=== PATIENT | female | born 1965 | race Caucasian/White ===

== ENCOUNTER 2016-06-09 01:51 | Emergency (ER) | payer OTHER ==
[~2016-06-09] VITALS: Ht 172.7 cm; Wt 59.0 kg
[~2016-06-09 01:51] MED LIST: AZITHROMYCIN250 M1 PO; CALCIUM600 M2 PO; HYDROCHLOROTHIA25 M1 PO; MULTIVITAMINS1 EAC9 PO; NAPROSYN500 M1 PO; PANTOPRAZOLE SO40 M1 PO; PROTONIX40 M3 PO; TESSALON PERLE100 M1 PO; TRAMADOL HCL50 M1 PO
--- NOTE | 2016-06-09 05:06 | ED PSYCHIATRIC COMPLAINT ---
History of Present Illness General Chief Complaint: Psychiatric Related Complaint Stated Complaint: BIBA SI Source: patient, old records, EMS Exam Limitations: no limitations Allergies Coded Allergies: ibuprofen (From MOTRIN) (Intermediate, NAUSEA 08/22/15) aspirin (GI UPSET, NAUSEA 08/22/15) Reconcile Medications Azithromycin 250 MG TABLET 1 DP PO AD sinusitis 2 the first day followed by 1 for days 2-5 Benzonatate (Tessalon Perle) 100 MG CAPSULE 1 CAP PO TID PRN cough Calcium Carbonate (Calcium) (Unknown Strength) TABLET (Unknown Dose) PO DAILY SUPPLEMENT (Reported) Hydrochlorothiazide 25 MG TABLET 1 TAB PO DAILY BP (Reported) Hydrochlorothiazide 25 MG TABLET 1 TAB PO DAILY hypertension Multiple Vitamin (Multivitamins) 1 EACH TABLET 1 TAB PO DAILY SUPPLEMENT ( Reported) Naproxen (Naprosyn) 500 MG TABLET 1 TAB PO BID PRN pain Pantoprazole Sodium (Unknown Strength) TABLET.DR (Unknown Dose) PO DAILY GI ( Reported) Pantoprazole Sodium (Protonix) 40 MG TABLET.DR 1 TAB PO DAILY gerd Tramadol HCl 50 MG TABLET 1 TAB PO Q6P PRN pain Triage Note: PT BIBA FROM HOME FOR POSSIBLE +SI. PER EMS PT INGESTED 30+ HYDRALAZINE PILLS. PT COMPLAINS OF FEELING SLEEPY. PER EMS POSSIBLE DOMESTIC INCIDENT MAY HAVE TAKEN PLACE DUE TO BROKEN PLATES ALL OVER HOME. UPON ARRIVAL PT ALERT BUT DROWSY. Triage Nurses Notes Reviewed? yes HPI: Patient presents for evaluation of a suicide attempt. Patient states she "took a lot of medicine" because she "wanted to sleep". She is not sure exactly what she took, it may have been hydrochlorothiazide or hydroxyzine. She denies any coingestion of Tylenol ibuprofen aspirin or any associated drug use. He does admit to drinking alcohol tonight because she has been under a lot of stress related to her boyfriend. (ANASTACIA CINTRON,BRIT Hargrove) Vital Signs & Intake/Output Vital Signs & Intake/Output Vital Signs Date Time Temp Pulse Resp B/P Pulse O2 O2 Flow FiO2 Ox Delivery Rate 06/10 1103 97.3 90 18 115/73 96 06/09 2238 98.2 74 16 134/80 94 Room Air 06/09 2131 98.2 84 16 130/76 95 Room Air 06/09 1950 98.2 84 16 150/76 98 Room Air 06/09 1740 98.2 80 16 125/76 95 Room Air 06/09 1430 98.4 80 16 128/76 94 Room Air ED Intake and Output 06/10 0000 06/09 1200 Intake Total 0 Output Total Balance 0 Intake, Oral 0 Patient 130 lb 130 lb Weight Past History Travel History Traveled to [place] past 21 day No Medical History Any Pertinent Medical History? see below for history Neurological: NONE EENT: NONE Cardiovascular: hypertension Respiratory: NONE Gastrointestinal: GERD Hepatic: NONE Renal: NONE Musculoskeletal: chronic back pain, chronic neck pain Psychiatric: NONE Endocrine: NONE Blood Disorders: NONE Cancer(s): NONE Surgical History Surgical History: non-contributory Psychosocial History What is your primary language Portuguese Family History Hx Contributory? No (ANASTACIA CINTRON,BRIT Hargrove) Review of Systems Review of Systems Constitutional: Reports: no symptoms. EENTM: Reports: no symptoms. Respiratory: Reports: no symptoms. Cardiovascular: Reports: no symptoms. GI: Reports: no symptoms. Genitourinary: Reports: no symptoms. Musculoskeletal: Reports: no symptoms. Skin: Reports: no symptoms. Neurological/Psychological: Reports: see HPI. Hematologic/Endocrine: Reports: no symptoms. Immunologic/Allergic: Reports: no symptoms. All Other Systems: Reviewed and Negative (ANASTACIA CINTRON,BRIT Hargrove) Physical Exam Physical Exam General Appearance: see below Neurological/Psychiatric: see below Comments: General: cooperative, somnolent but easily arousable. Head: Normocephalic, atraumatic Eyes: Normal inspection, no nystagmus, EOMI Ears: Normal inspection Nose: Normal inspection Throat: Moist mucosa Neck: Supple, no goiter Heart: Regular rate and rhythm, no murmurs rubs or gallops Lungs: Clear to auscultation bilaterally with good air entry Abdomen: Soft nontender nondistended, normal bowel sounds Chest: Nontender Extremities: Normal range of motion grossly, no tremors present, no cyanosis clubbing or edema of the upper extremities Neurologic: cranial nerves II through XII grossly intact, speech clear, gait normal Psychiatric: No apparent delusions or hallucinations, no pressured speech or thought blocking SAD PERSONS Done? 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 06/10/2016 7:17:44 AM pt signed out to me by dr vegas. 06/10/2016 1:40:49 PM PER CRISIS, TRANSFER TO [facility] [place] IN [place] TO DR FALK. (ANASTACIA CINTRON,BRIT Hargrove) Plan of Care: Orders Procedure Date/time Status Regular Diet 06/10 B Active Continuous Observation Monitor 06/10 0539 Active Hand-Off Endorsed To: HAVEN VEGAS MD Endorsed Time: 1900 Pending: other (bed search) (YNES ORTIZ MD) Hand-Off Endorsed To: BRIT GALAVIZ MD Endorsed Time: 07 Pending: other (HAVEN VEGAS MD) Departure Departure Disposition: OTHER PYSCH Condition: Stable Referrals: ALEISHA MCGRAW MD (PCP/Family) Departure Forms: Customer Survey General Discharge Information (BRIT GALAVIZ MD) Departure Clinical Impression Primary Impression: Major depression Qualifiers: Major depression recurrence: recurrent Active/Remission status: currently active Major depression episode severity: unspecified Qualified Code: F33.9 - Major depressive disorder, recurrent, unspecified (YNES ORTIZ MD) ALEISHA MCGRAW MD (PCP/Family) Departure Forms: Customer Survey General Discharge Information (BRIT GALAVIZ MD) Departure Disposition: STILL A PATIENT Clinical Impression Primary Impression: Major depression Qualifiers: Major depression recurrence: recurrent Active/Remission status: currently active Major depression episode severity: unspecified Qualified Code: F33.9 - Major depressive disorder, recurrent, unspecified (YNES ORTIZ MD)
[2016-06-09 05:38] LABS: ABSOLUTE BASOPHIL COUNT 0.1 /CUMM (0.0-0.2); ABSOLUTE EOSINOPHIL COUNT 0.1 /CUMM (0.0-0.7); ABSOLUTE LYMPH COUNT 2.3 /CUMM (1.2-3.4); ABSOLUTE MONOCYTE COUNT 0.3 /CUMM (0.10-0.60); EOSINOPHIL % 2.5 % (0-5); GRANULOCYTE % 51.6 % (42.2-75.2); HEMATOCRIT 40.7 % (37-47); MEAN CORPUSCULAR HGB 31.1 PG (27.0-31.0); MEAN CORPUSCULAR HGB CONC 34.1 G/DL (33.0-37.0); MEAN CORPUSCULAR VOLUME 91.2 FL (81.0-99.0); MEAN PLATELET VOLUME 7.4 FL (7.4-10.4); PLATELET COUNT 397 /CUMM (130-400); RBC DISTRIBUTION WIDTH 13.4 % (11.5-14.5); RED BLOOD CELL CT 4.47 /CUMM (4.20-5.40); WHITE BLOOD CELL COUNT 5.8 /CUMM (4.8-10.8)
--- NOTE | 2016-06-09 12:42 | ED PSY CRISIS COLLATERAL NOTE ---
Collateral Note Collateral Note Family/Inform/Eryn Contacts: This clinician called Kevin Rich boyfriend of 2 years. Kevin reports the Pt has been more depressed after the holidays, spending time in her room and isolating. He reports the Pt is receiving treated at [facility] in [place]. Kevin reports the Pt attempted overdose by taking pills, drinking Alcohol and called 911. He reports being concerned about her depression. (TRENT BOOTH,MARYLOU) Collateral Note Family/Inform/Eryn Contacts: Pt continues to endorse si, and feels depressed. Pt understnads her dispostion is inpatient hospitialization. Pt laying down calm, cooperative and asked for gingerale. Pt will be updated if their is a bed found. (ALANNA AG,KIP)
--- NOTE | 2016-06-09 13:36 | ED PSYCH CRISIS CONSULTATION ---
See Addendum Crisis Consult Basic Assessment Date of Consult: 06/09/16 Responsible Person/Accompanied By: Self Insurance Authorization: Insurance #1: Insurance name: LUCRECIA WOLFE Phone number: Policy number: [id number] Group number: Authorization number: ED Provider: Patient's ED Provider: BRIT GALAVIZ MD Primary Care Physician: Patient's PCP: ALEISHA MCGRAW MD PCP's Current Psychiatrist: Dr. Rodney Nick Chief Complaint: Psychiatric Related Complaint Patient's Quote: " I feel really depressed" Present Illness: Pt is a 50 year old single female BIBA for evaluation of a suicide attempt. Pt states she "took a lot of medicine" because she "wanted to sleep" and not sure exactly what she took, it may have been hydrochlorothiazide or hydroxyzine Anxiety medication. Pt reports drinking Alcohol Rum 1/5 with the pills to overdose and then called 911. She reports being depressed, sad and hopeless. Pt reports being in a relationship with a boyfriend and arguing alot. She reports a history of (1) previous suicide attempt and a history of Mental Health treatment in the [place] area. Pt reports most recently being treated in [place] at Care treated for depression with Cymbalta. She reports a history of Alcohol abuse and denies the use of any other substance or Substance Abuse treatment. Pt reports taking Oxycodine for pain and reports having Fibromyalgia, recent foot operated in February, and neck pain. Patient's Address: [address] [place] [address] Other Who Do You Live With? Friend (Boyfriend Kevin Mina) Family/Informants Interviewed: Kevin Mina [phone] boyfriend Allergies - Coded Allergies: ibuprofen (From MOTRIN) (Intermediate, NAUSEA 08/22/15) aspirin (GI UPSET, NAUSEA 08/22/15) Current Medications - Scheduled Medications Azithromycin 250 MG TABLET 1 DP PO AD sinusitis #6 TAB Prescribed by JOYCE GARCIA on 02/25/16 Calcium Carbonate (Calcium) (Unknown Strength) TABLET (Unknown Dose) PO DAILY SUPPLEMENT (Reported) Entered as Reported by JARET CARRILLO on 04/05/16 1920 Hydrochlorothiazide 25 MG TABLET 1 TAB PO DAILY BP (Reported) Entered as Reported by JARET CARRILLO on 08/22/15 191 Hydrochlorothiazide 25 MG TABLET 1 TAB PO DAILY hypertension #30 TAB Prescribed by MARCELLA LARA on 08/22/15 Multiple Vitamin (Multivitamins) 1 EACH TABLET 1 TAB PO DAILY SUPPLEMENT ( Reported) Entered as Reported by JARET CARRILLO on 08/22/151920 Pantoprazole Sodium (Unknown Strength) TABLET.DR (Unknown Dose) PO DAILY GI ( Reported) Entered as Reported by JARET CARRILLO on 08/22/151919 Pantoprazole Sodium (Protonix) 40 MG TABLET.DR 1 TAB PO DAILY gerd #30 TAB Prescribed by MARCELLA LARA on 08/22/15 Scheduled PRN Medications Benzonatate (Tessalon Perle) 100 MG CAPSULE 1 CAP PO TID PRN cough #12 CAP Prescribed by JOYCE GARCIA on 02/25/16 Naproxen (Naprosyn) 500 MG TABLET 1 TAB PO BID PRN pain #20 TAB Prescribed by JOYCE GARCIA on 02/25/16 Tramadol HCl 50 MG TABLET 1 TAB PO Q6P PRN pain #30 TAB Prescribed by MARCELLA LARA on 08/22/15 Laboratory Results: Laboratory Tests 06/09/16 0556: Urine Opiates Screen 105.00, Methadone Screen 64, Barbiturate Screen < 60, Ur Phencyclidine Scrn < 6.00, Amphetamines Screen < 100, U Benzodiazepines Scrn < 85, Urine Cocaine Screen < 50, Urine Cannabis Screen < 5.00 06/09/16 0528: Anion Gap 12, Estimated GFR > 60, BUN/Creatinine Ratio 17.1, Glucose 78, Calcium 9.3, Total Bilirubin 0.4, AST 18, ALT 26, Alkaline Phosphatase 67, Total Protein 7.3, Albumin 4.3, Globulin 3.0, Albumin/Globulin Ratio 1.4, CBC w Diff NO MAN DIFF REQ, RBC 4.47, MCV 91.2, MCH 31.1 H, RDW 13.4, MPV 7.4, Gran % 51.6, Lymphocytes % 40.3, Monocytes % 4.6, Eosinophils % 2.5, Basophils % 1.0, Absolute Granulocytes 3.0, Absolute Lymphocytes 2.3, Absolute Monocytes 0.3, Absolute Eosinophils 0.1, Absolute Basophils 0.1, PUBS MCHC 34.1, Salicylates < 1.0, Acetaminophen < 10.0 L, Serum Alcohol 33.0 (TRENT LEOBARDO,MARYLOU) Past History Past Medical History Neurological: NONE EENT: NONE Cardiovascular: hypertension Respiratory: NONE Gastrointestinal: GERD Hepatic: NONE Renal: NONE Musculoskeletal: chronic back pain, chronic neck pain Psychiatric: depression Endocrine: NONE Blood Disorders: NONE Cancer(s): NONE 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 Psychiatric Treatment History Psych Treatment Psychiatric Treatment Yes Inpatient Treatment Yes Outpatient Treatment Yes Location of Treatment Care in [place] Reason for Treatment Depression Dates of Treatment currently being treated at [facility] for depression Response to Treatment currently being treated poor , currently despressed. Diagnosis by History: Marjor Depression, Unspecified F32.9 Substance Use/Abuse History Drug Use/Abuse Substances Used/Abused Yes Substance Used/Abused Alcohol First Use 14 YEARS OLD Last Used 06/09/2016 How much used/taken 1/5 of Rum How often occassionally For how long occassionally Route of use oral Substance Abuse Treatment Substance Abuse Treatment Past Substance Abuse [place] No Inpatient Treatment No Outpatient Treatment No Comments: Pt presents to the ER after attesmting suicide by overdose with pills and Alcohol. Hx of depression currently treated at [facility] with Dimitrimbalta. (TRENT MARYLOU BOOTH) Current Mental Status Mental Status Orientation: Person, Place, Situation Affect: Depressed, Flat, Hopeless, Sad Speech: WNL Neuro-vegetative: Appetite Decreased, Energy Decreased Appearance Appearance- Dress/Hygiene: Dressed in hospital clothing. Behaviors Thought Process: WNL Thought Content: WNL Memory: WNL Insight: Poor SI/HI Risk Assessment Past Suicidal Ideation/Attempts Yes Current Suicidal Ideation/Att No Past Homicidal Ideation/Att: No Current Homicidal Ideation/Attempts No Degree of Intent: Made Preparations, Plan Danger To: Self Gravely Disabled: Lack of Insight, Poor Impulse Control, Poor Judgment Risk Factors: history of suicide atmpts, SA/MH hospitalized, poor impulse control Lethality Ratin PTSD Checklist PTSD Score: PTSD Score: Response Value Disturbing memories,thoughts,images of stressful experience? Not at all 1 Disturbing dreams of stressful experience from past? Not at all 1 Suddenly acting/feeling as if reliving stressful experience? Not at all 1 Total 3 PTSD Done? patient declined ED Management Sitter: Yes Restraints: No (TRENT LEOBARDOMARYLOU) DSM5/PS Stressors/Medical Prob Diagnosis' (DSM 5, Stressors, Medical): Depression Unspeciefied F32.9 Current GAF: 25 Comments: Pt presents to the ER after attesmting suicide by overdose with pills and Alcohol. Hx of depression currently treated at [facility] with Cymbalta. Pt presents depressed, sad, and hopeless. Consulted with Dr. Rodney Nick. (MARYLOU NELSON) Departure Disposition Psych Medical Clearance Date: 06/09/16 Medically Cleared at: 1140 Time Started: 1140 Time Ended: 1225 Psychiatrist Consulted: Dr. Rodney Nick Date Disposition Established: 06/09/16 Time Disposition Established: 1225 Plan for Disposition - Modality: Bed Search Rationale for Disposition: Pt presents to the ER after attesmting suicide by overdose with pills and Alcohol. Hx of depression currently treated at [facility] with Cymbalta. Pt presents depressed, sad, and hopeless. Consulted with Dr. Rodney Nick. Type of IP Admission: Voluntary Referrals ALEISHA MCGRAW MD (PCP/Family) (TRENT MARYLOU BOOTH) Addendum Addendum Pt continues to endorse si, and feels depressed. Pt understands her dispostion is inpatient hospitialization. Pt laying down calm, cooperative and asked for gingerale. Pt will be updated if their is a bed found. (ALANNA AG,KIP)
[2016-06-10 14:04] VITALS: BP 118/80
== END 2016-06-10 14:39 | disposition other institution (70) ==
LOC: ERH 01:51
PROVIDERS: Emergency Medicine
DX: F32.9 Major depressive disorder, single episode, unspecified (principal); T50.902A Poisoning by unspecified drugs, medicaments and biological substances, intentional self-harm, initial encounter; F10.10 Alcohol abuse, uncomplicated
CPT/HCPCS: 80307; 93005; 93010; G0463; G0480; J3101

== ENCOUNTER 2016-10-02 20:52 | Emergency (ER) | payer OTHER ==
[~2016-10-02] VITALS: Ht 162.6 cm; Wt 54.4 kg
--- NOTE | 2016-10-02 22:10 | ED DYSPNEA/ASTHMA COMPLAINT ---
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 Vital Signs & Intake/Output Vital Signs & Intake/Output Vital Signs Date Time Temp Pulse Resp B/P B/P Pulse O2 O2 Flow FiO2 Mean Ox Delivery Rate 10/02 2058 97.5 98 20 111/79 98 Room Air Allergies Coded Allergies: ibuprofen (From MOTRIN) (Intermediate, NAUSEA 08/22/15) aspirin (GI UPSET, NAUSEA 08/22/15) Reconcile Medications Azithromycin 250 MG TABLET 1 DP PO AD sinusitis 2 the first day followed by 1 for days 2-5 Benzonatate (Tessalon Perle) 100 MG CAPSULE 1 CAP PO TID PRN cough Calcium Carbonate (Calcium) (Unknown Strength) TABLET (Unknown Dose) PO DAILY SUPPLEMENT (Reported) Hydrochlorothiazide 25 MG TABLET 1 TAB PO DAILY BP (Reported) Hydrochlorothiazide 25 MG TABLET 1 TAB PO DAILY hypertension Multiple Vitamin (Multivitamins) 1 EACH TABLET 1 TAB PO DAILY SUPPLEMENT ( Reported) Naproxen (Naprosyn) 500 MG TABLET 1 TAB PO BID PRN pain Pantoprazole Sodium (Unknown Strength) TABLET.DR (Unknown Dose) PO DAILY GI ( Reported) Pantoprazole Sodium (Protonix) 40 MG TABLET.DR 1 TAB PO DAILY gerd Tramadol HCl 50 MG TABLET 1 TAB PO Q6P PRN pain Triage Note: PT TO TRIAGE WITH C/O DIFFICULTY BREATHING SINCE FRIDAY, HAS BEEN USING VENTOLIN WITH SLIGHT RELIEF. O2SAT 98% ON RA, PT SPEAK FALL SENTENSES ALSO PT REPORTS SLIP AND FALL IN BATHROOM 1HR FORENSIC PSYCHIATRIST, HIT BACK OF HEAD, -LOC, -LAC. PT C/O HEADACHE AND NECK PAIN, +TENDERNESS TO C-SPINE, PT REFUSED COLLAR. VSS. 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
--- NOTE | 2016-10-02 22:15 | ED DYSPNEA/ASTHMA COMPLAINT ---
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 Source: patient, old records Exam Limitations: no limitations Vital Signs & Intake/Output Vital Signs & Intake/Output Vital Signs Date Time Temp Pulse Resp B/P B/P Pulse O2 O2 Flow FiO2 Mean Ox Delivery Rate 10/02 2224 98 10/02 2058 97.5 98 20 111/79 98 Room Air Allergies Coded Allergies: ibuprofen (From MOTRIN) (Intermediate, NAUSEA 08/22/15) aspirin (GI UPSET, NAUSEA 08/22/15) Reconcile Medications Azithromycin 250 MG TABLET 1 DP PO AD sinusitis 2 the first day followed by 1 for days 2-5 Benzonatate (Tessalon Perle) 100 MG CAPSULE 1 CAP PO TID PRN cough Calcium Carbonate (Calcium) (Unknown Strength) TABLET (Unknown Dose) PO DAILY SUPPLEMENT (Reported) Hydrochlorothiazide 25 MG TABLET 1 TAB PO DAILY BP (Reported) Hydrochlorothiazide 25 MG TABLET 1 TAB PO DAILY hypertension Multiple Vitamin (Multivitamins) 1 EACH TABLET 1 TAB PO DAILY SUPPLEMENT ( Reported) Naproxen (Naprosyn) 500 MG TABLET 1 TAB PO BID PRN pain Pantoprazole Sodium (Unknown Strength) TABLET.DR (Unknown Dose) PO DAILY GI ( Reported) Pantoprazole Sodium (Protonix) 40 MG TABLET.DR 1 TAB PO DAILY gerd Tramadol HCl 50 MG TABLET 1 TAB PO Q6P PRN pain Triage Note: PT TO TRIAGE WITH C/O DIFFICULTY BREATHING SINCE FRIDAY, HAS BEEN USING VENTOLIN WITH SLIGHT RELIEF. 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 PT C/O HEADACHE AND NECK PAIN, +TENDERNESS TO C-SPINE, PT REFUSED COLLAR. VSS. Triage Nurses Notes Reviewed? yes HPI: Patient presents with 2 complaints. First complaint is dyspnea and worsening for the past 2 days. Patient denies any chest pain or chest tightness. She has a productive cough. Patient suffers from asthma and just feels that his irritability that attack. There is no orthopnea. There slight dyspnea on exertion. There are no fevers or chills. Patient has been using her inhaler without relief. Patient's other complaint is neck pain. Patient states that she has chronic spinal stenosis and is due to have surgery. Patient was in the shower getting ready to come here when she felt a little lightheaded and then slipped on the water and fell backwards and hit her head on the shower wall. There was no loss of consciousness. Patient states that she hyperflexed her neck and now is having acute exacerbation of chronic pain in her neck. The pain is in the lower aspect of her neck. There is no radiation. The pain increases with movement. The pain is sharp but aching in nature. She rates the pain as 10 out of 10. There is no Numbness or weakness. Past History Travel History Traveled to [place] past 21 day No Medical History Any Pertinent Medical History? 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 No Review of Systems Review of Systems Constitutional: Reports: no symptoms. EENTM: Reports: no symptoms. Respiratory: Reports: see HPI, cough, short of breath, sputum production, wheezing. Cardiovascular: Reports: no symptoms. GI: Reports: no symptoms. Genitourinary: Reports: no symptoms. Musculoskeletal: Reports: see HPI, neck pain. Skin: Reports: no symptoms. Neurological/Psychological: Reports: no symptoms. Hematologic/Endocrine: Reports: no symptoms. Immunologic/Allergic: Reports: no symptoms. All Other Systems: Reviewed and Negative Physical Exam Physical Exam General Appearance: well developed/nourished, alert, awake, anxious, moderate distress Head: atraumatic, normal appearance Eyes: Bilateral: PERRL, EOMI. Ears, Nose, Throat: normal pharynx, normal ENT inspection, hearing grossly normal Neck: normal inspection, supple, tender lateral, tender midline Respiratory: decreased breath sounds, wheezing Cardiovascular: regular rate/rhythm, normal peripheral pulses Gastrointestinal: normal bowel sounds, soft, non-tender, no organomegaly Extremities: normal inspection, normal capillary refill, normal range of motion, no edema Neurologic/Psych: no motor/sensory deficits, awake, alert, oriented x 3, normal gait, normal mood/affect Skin: intact, normal color, warm/dry Lymphatic: no anterior cervical imelda Core Measures ACS in differential dx? No Severe Sepsis Present: No Septic Shock Present: No Progress Differential Diagnosis: asthma, bronchitis, COPD, pneumonia, pneumothorax Plan of Care: Orders Procedure Date/time Status TROPONIN LEVEL 10/02 2213 Complete COMPREHENSIVE METABOLIC PANEL 10/02 2213 Complete CBC WITHOUT DIFFERENTIAL 10/02 2213 Complete EKG 10/02 2213 Active Laboratory Tests 10/02/162230: Anion Gap 11, Estimated GFR > 60, BUN/Creatinine Ratio 16.7, Glucose 95, Calcium 9.7, Total Bilirubin 0.5, AST 15, ALT 35, Alkaline Phosphatase 84, Troponin I < 0.01, Total Protein 7.2, Albumin 4.5, Globulin 2.7, Albumin/Globulin Ratio 1.7, CBC w Diff NO MAN DIFF REQ, RBC 4.29, MCV 90.1, MCH 31.5 H, RDW 13.1, MPV 7.1 L, Gran % 48.3, Lymphocytes % 45.1, Monocytes % 4.7, Eosinophils % 1.6, Basophils % 0.3, Absolute Granulocytes 4.6, Absolute Lymphocytes 4.3 H, Absolute Monocytes 0.4, Absolute Eosinophils 0.2, Absolute Basophils 0, PUBS MCHC 35.0 Diagnostic Imaging: Viewed by Me: Radiology Read, CT Scan. Discussed w/RAD: Radiology Read, CT Scan. Radiology Impression: PATIENT: TENISHA TORRES PRESENT AGE: 50 PATIENT ACCOUNT NO: [id number] : 63 LOCATION: [facility] ORDERING PHYSICIAN: SAL RIVERA MD SERVICE DATE: 10/02/16 EXAM TYPE: CAT - CT CERV SPINE WO IV CONTRAST; CT HEAD WO IV CONTRAST EXAMINATIONS: CT HEAD WITHOUT CONTRAST AND CT CERVICAL SPINE WITHOUT CONTRAST CLINICAL INFORMATION: Pain following injury. Trauma. COMPARISON: None. TECHNIQUE: Contiguous helical images of the brain were obtained without IV contrast. Contiguous helical images of the cervical spine were obtained without IV contrast. Multiplanar reconstructions were performed. DLP: 861 mGy-cm. FINDINGS: There are no pathologic extra-axial fluid collections. The lateral, third, fourth ventricles are nondilated and concordant with the appearance of the sulci. There is no evidence for acute intraparenchymal hemorrhage or infarct. There is neither mass nor mass effect. There is no shift of midline structures. The paranasal sinuses and mastoid air cells are clear. There are no osseous lesions. The cervical vertebra are in normal alignment. There is disc height loss within the mid to lower cervical spine. There is mild anterior osteophyte formation. Disc heights and vertebral heights are otherwise well-preserved. There are no fractures. There is no prevertebral soft tissue swelling. There is no cervical lymphadenopathy. The visualized lung apices are clear. IMPRESSION: No evidence for acute intracranial injury. No evidence for acute injury to the cervical spine. Mild degenerative change with in the mid to lower cervical spine. DICTATED BY: JOHANA WILLIAMSON MD DATE/TIME DICTATED:10/02/162309 SIGN PAINTER HELPER:LUCIA DATE/TIME TRANSCRIBED:10/02/162309 CONFIDENTIAL, DO NOT COPY WITHOUT APPROPRIATE AUTHORIZATION. <Electronically signed in Other Vendor System> SIGNED BY: JOHANA WILLIAMSON MD 10/02/162317 CXR Impression: PATIENT: TENISHA TORRES PRESENT AGE: 50 PATIENT ACCOUNT NO: [id number] : 63 LOCATION: [facility] ORDERING PHYSICIAN: SAL RIVERA MD SERVICE DATE: 10/02/16 EXAM TYPE: RAD - XRY-CHEST XRAY, PA AND LATERAL EXAMINATION: XR CHEST CLINICAL INFORMATION: Productive cough. Dyspnea. COMPARISON: 03/04/2016 TECHNIQUE: 2 views of the chest were obtained. FINDINGS: The lungs are well expanded. There is no focal consolidation , edema, or effusion. No pneumothorax. The cardiomediastinal silhouette is within normal limits. No acute osseous abnormality. Surgical anchors in the left humeral head and glenoid. IMPRESSION: No acute pulmonary findings. DICTATED BY: KVNG PATEL MD DATE/TIME DICTATED:10/02/162314 SIGN PAINTER HELPER: LUCIA DATE/TIME TRANSCRIBED:10/02/162314 CONFIDENTIAL, DO NOT COPY WITHOUT APPROPRIATE AUTHORIZATION. <Electronically signed in Other Vendor System> SIGNED BY: KVNG PATEL MD 10/02/162318 Initial ED EKG: NSR, no ST T wave changes Prior EKG: unchanged Departure Departure Disposition: HOME OR SELF CARE Condition: Stable Clinical Impression Primary Impression: Bronchitis Secondary Impressions: Cervical strain Qualifiers: Encounter type: initial encounter Qualified Code: S16.1XXA - Strain of muscle, fascia and tendon at neck level, initial encounter Head injury Qualifiers: Encounter type: initial encounter Qualified Code: S09.90XA - Unspecified injury of head, initial encounter Referrals: ALEISHA MCGRAW MD (PCP/Family) Additional Instructions: CONTINUE TO STOP SMOKING TAKE ANTIBIOTICS PRESCRIBED TAKE TESSALON NEEDED FOR THE COUGH TAKE ULTRAM NEEDED FOR PAIN TAKE PREDNISONE PRESCRIBED Departure Forms: Customer Survey General Discharge Information Prescriptions: Current Visit Scripts Azithromycin (Zithromax) 1 DP PO AD #6 TAB 2 the first day followed by 1 for days 2-5 Prednisone 1 TAB PO DAILY #30 TAB TAKE 4 TABS FOR 3 DAYS THEN TAKE 3 TABS FOR 3 DAYS THEN TAKE 2 TABS FOR 3 DAYS THEN TAKE 1 TAB FOR 3 DAYS Tramadol HCl 1 TAB PO Q6P PRN NECK PAIN #20 TAB Benzonatate (Tessalon Perle) 1 CAP PO TID #30 CAP Critical Care Note Critical Care Note Critical Care Time: non-applicable
[2016-10-02 22:40] LABS: ABSOLUTE BASOPHIL COUNT 0 /CUMM (0.0-0.2); ABSOLUTE EOSINOPHIL COUNT 0.2 /CUMM (0.0-0.7); ABSOLUTE GRANULOCYTE CT 4.6 /CUMM (1.4-6.5); ABSOLUTE LYMPH COUNT 4.3 /CUMM (1.2-3.4); ABSOLUTE MONOCYTE COUNT 0.4 /CUMM (0.10-0.60); BASOPHIL % 0.3 % (0.0-2.0); EOSINOPHIL % 1.6 % (0-5); HEMATOCRIT 38.7 % (37-47); MEAN CORPUSCULAR HGB 31.5 PG (27.0-31.0); MEAN CORPUSCULAR VOLUME 90.1 FL (81.0-99.0); MEAN PLATELET VOLUME 7.1 FL (7.4-10.4); PLATELET COUNT 348 /CUMM (130-400); RBC DISTRIBUTION WIDTH 13.1 % (11.5-14.5); RED BLOOD CELL CT 4.29 /CUMM (4.20-5.40); WHITE BLOOD CELL COUNT 9.6 /CUMM (4.8-10.8)
[2016-10-02 22:41] LABS: GRANULOCYTE % 48.3 % (42.2-75.2)
--- NOTE | 2016-10-02 23:18 | CT SCAN REPORT ---
EXAMINATIONS: CT HEAD WITHOUT CONTRAST AND CT CERVICAL SPINE WITHOUT CONTRAST CLINICAL INFORMATION: Pain following injury. Trauma. COMPARISON: None. TECHNIQUE: Contiguous helical images of the brain were obtained without IV contrast. Contiguous helical images of the cervical spine were obtained without IV contrast. Multiplanar reconstructions were performed. DLP: 861 mGy-cm. FINDINGS: There are no pathologic extra-axial fluid collections. The lateral, third, fourth ventricles are nondilated and concordant with the appearance of the sulci. There is no evidence for acute intraparenchymal hemorrhage or infarct. There is neither mass nor mass effect. There is no shift of midline structures. The paranasal sinuses and mastoid air cells are clear. There are no osseous lesions. The cervical vertebra are in normal alignment. There is disc height loss within the mid to lower cervical spine. There is mild anterior osteophyte formation. Disc heights and vertebral heights are otherwise well-preserved. There are no fractures. There is no prevertebral soft tissue swelling. There is no cervical lymphadenopathy. The visualized lung apices are clear. IMPRESSION: No evidence for acute intracranial injury. No evidence for acute injury to the cervical spine. Mild degenerative change with in the mid to lower cervical spine.
--- NOTE | 2016-10-02 23:19 | RADIOLOGY REPORT ---
EXAMINATION: XR CHEST CLINICAL INFORMATION: Productive cough. Dyspnea. COMPARISON: 03/04/2016 TECHNIQUE: 2 views of the chest were obtained. FINDINGS: The lungs are well expanded. There is no focal consolidation, edema, or effusion. No pneumothorax. The cardiomediastinal silhouette is within normal limits. No acute osseous abnormality. Surgical anchors in the left humeral head and glenoid. IMPRESSION: No acute pulmonary findings.
[2016-10-02] MEDS ORDERED: TRAMADOL HCL50 M1 PO (23:31)
[2016-10-02] MEDS ORDERED: PREDNISONE10 M2 PO (23:31)
[2016-10-02] MEDS ORDERED: TESSALON PERLE100 M1 PO (23:31)
[2016-10-02] MEDS ORDERED: ZITHROMAX250 M2 PO (23:31)
[2016-10-02 23:53] VITALS: BP 114/78
== END 2016-10-02 23:54 ==
LOC: ERH 20:52
PROVIDERS: Emergency Medicine
DX: S16.1XXA Strain of muscle, fascia and tendon at neck level, initial encounter (principal); S09.90XA Unspecified injury of head, initial encounter; J40 Bronchitis, not specified as acute or chronic; F17.210 Nicotine dependence, cigarettes, uncomplicated; W18.2XXA Fall in (into) shower or empty bathtub, initial encounter; Y92.009 Unspecified place in unspecified non-institutional (private) residence as the place of occurrence of the external cause; Y93.9 Activity, unspecified
CPT/HCPCS: 1263; 93005; 93010